=== PATIENT | female | born 1960 | race Caucasian/White ===

== ENCOUNTER 2017-09-23 01:55 | Emergency (ER) | payer MEDICARE, BC ==
[~2017-09-23] VITALS: Ht 167.6 cm; Wt 98.3 kg
[~2017-09-23 01:55] MED LIST: CYCL5TAB14 PO; DICL75TA5 PO
[2017-09-23 02:03] VITALS: BP 146/89
[2017-09-23] MEDS ORDERED: acetaminophen 325mg tablet PO ONE (02:15)
[2017-09-23] MEDS ORDERED: ibuprofen tablet 400 MG TABLET PO ONE (02:15)
== END 2017-09-23 03:41 | disposition home or self-care (01) ==
LOC: ER 01:56
DX: S82.001A Unspecified fracture of right patella, initial encounter for closed fracture (principal); I10 Essential (primary) hypertension; J45.909 Unspecified asthma, uncomplicated; E11.9 Type 2 diabetes mellitus without complications; M79.7 Fibromyalgia; G89.29 Other chronic pain; Z90.710 Acquired absence of both cervix and uterus; Z98.84 Bariatric surgery status; Z88.8 Allergy status to other drugs, medicaments and biological substances; Z90.49 Acquired absence of other specified parts of digestive tract; W01.0XXA Fall on same level from slipping, tripping and stumbling without subsequent striking against object, initial encounter; Y93.89 Activity, other specified; Y92.89 Other specified places as the place of occurrence of the external cause; Y99.8 Other external cause status
CPT/HCPCS: 73564; 99284

== ENCOUNTER 2017-10-02 13:57 | Outpatient (CLI) | payer MEDICARE, BC ==
[2017-10-02 13:56] VITALS: BP 151/81
== END 2017-10-02 14:55 | disposition home or self-care (01) ==
LOC: ORTHO 13:57
PROVIDERS: ATTEND Nurse Practitioner Family
DX: S82.041A Displaced comminuted fracture of right patella, initial encounter for closed fracture (principal); S80.02XA Contusion of left knee, initial encounter; M77.8 Other enthesopathies, not elsewhere classified; E11.9 Type 2 diabetes mellitus without complications; I10 Essential (primary) hypertension; F32.9 Major depressive disorder, single episode, unspecified; E55.9 Vitamin D deficiency, unspecified; Z91.14 Patient's other noncompliance with medication regimen; Z91.19 Patient's noncompliance with other medical treatment and regimen; Z88.8 Allergy status to other drugs, medicaments and biological substances; X58.XXXA Exposure to other specified factors, initial encounter; Y93.89 Activity, other specified; Y92.89 Other specified places as the place of occurrence of the external cause; Y99.8 Other external cause status
CPT/HCPCS: 73562; 99213

== ENCOUNTER 2017-10-08 12:01 | Outpatient (CLI) | payer MEDICARE, BC ==
[2017-10-08 12:12] VITALS: BP 130/74
== END 2017-10-08 13:30 | disposition home or self-care (01) ==
LOC: ORTHO 12:01
PROVIDERS: ATTEND Nurse Practitioner Family
DX: S82.001D Unspecified fracture of right patella, subsequent encounter for closed fracture with routine healing (principal); E11.9 Type 2 diabetes mellitus without complications; F32.9 Major depressive disorder, single episode, unspecified; I10 Essential (primary) hypertension; Z91.14 Patient's other noncompliance with medication regimen; Z91.19 Patient's noncompliance with other medical treatment and regimen; Z88.8 Allergy status to other drugs, medicaments and biological substances; X58.XXXD Exposure to other specified factors, subsequent encounter
CPT/HCPCS: 73560; 99213

== ENCOUNTER 2017-10-22 11:38 | Outpatient (CLI) | payer MEDICARE, BC ==
[2017-10-22 11:52] VITALS: BP 149/85
== END 2017-10-22 12:20 | disposition home or self-care (01) ==
LOC: ORTHO 11:38
PROVIDERS: ATTEND Nurse Practitioner Family
DX: S82.001 Unspecified fracture of right patella (principal); E11.9 Type 2 diabetes mellitus without complications; F32.9 Major depressive disorder, single episode, unspecified; I10 Essential (primary) hypertension; Z91.14 Patient's other noncompliance with medication regimen; Z91.19 Patient's noncompliance with other medical treatment and regimen; Z88.8 Allergy status to other drugs, medicaments and biological substances; X58.XXXD Exposure to other specified factors, subsequent encounter
CPT/HCPCS: 73560; 99212

== ENCOUNTER 2020-06-06 08:12 | Outpatient (CLI) | payer MEDICARE, BC ==
[~2020-06-06] VITALS: Ht 167.6 cm; Wt 90.9 kg
[2020-06-06] VITALS (8 sets, daily range): BP systolic 99–136; BP diastolic 56–66
[2020-06-06] MEDS ORDERED: aminophylline 250mg/10ml inj. IV PRN (09:15)
[2020-06-06] MEDS ORDERED: normal saline 500ml IV soln 500 ML IV ONE (09:15)
[2020-06-06] MEDS ORDERED: regadenoson 0.4mg/5ml syringe IV PRN (09:15)
[2020-06-06] MEDS ORDERED: nitroGLYCERIN 0.4mg SUBLingual tab SL PRN (09:15)
--- NOTE | 2020-06-06 10:32 | NUR ---
Pre-flush of 5 ml of NS had resistance, but did not show signs of infiltration. Proceeded with test. Test stopped when pt complained of pain with push of nuc tracer. Signs of infiltration were noted. Pts vitals did not change of baseline significantly indicating pt did not received full dose of medication. After reviewing packet insert and online information, no contraindication to giving a follow-up dose of lexiscan. No need to treat infiltration site with any additional treatment. Pts arm was scanned and showed significant infiltration of tracer. radha Maldonado med tech, confirmed with radiologist and director there is no contraindication to given a second dose of tracer. Pt is tolerating procedure without complications or complaints. PICC RN placed new line to right AC.
[2020-06-06] MEDS ORDERED: regadenoson 0.4mg/5ml syringe IV ONE (11:00)
== END 2020-06-06 23:59 | disposition home or self-care (01) ==
LOC: RAD 08:12
PROVIDERS: ATTEND Internal Medicine Cardiovascular Disease
DX: Z01.810 Encounter for preprocedural cardiovascular examination (principal); I10 Essential (primary) hypertension; E11.9 Type 2 diabetes mellitus without complications
CPT/HCPCS: 76937; 78452; 93017; A9500; J0280; J2785; J7040